=== PATIENT | male | born 1995 | race Two or more races ===

== ENCOUNTER 2019-10-19 21:59 | Inpatient (IN) | payer OTHER ==
--- NOTE | 2019-10-19 22:42 | HP ---
COWS - Scale Resting Pulse: 0= [place] 80 or Below Sweatin= No chills or Flushing Restless Observation: 0= Sits Still Pupil Size: 0= Normal to Room Light Bone or Joint Aches: 0= None Runny Nose/ Eye Tearin= None GI Upset > 30mins: 3= Vomiting/Diarrhea Tremor Observation: 1= Tremor [place], Not Seen Yawning Observation: 1= 1-2x During Session Anxiety or Irritability: 2=Irritable/Anxious Goose Flesh Skin: 0=Smooth Skin COWS Score: 7 CIWA Score - Admission Criteria [facility] Guidelines: Admission for Medically Managed Detox: Requires at least one of the followin. CIWA greater than 12 2. Seizures within the past 24 hours 3. Delirium tremens within the past 24 hours 4. Hallucinations within the past 24 hours 5. Acute intervention needed for co occurring medical disorder 6. Acute intervention needed for co occurring psychiatric disorder 7. Severe withdrawal that cannot be handled at a lower level of care (continued vomiting, continued diarrhea, abnormal vital signs) requiring intravenous medication and/or fluids 8. Admission [facility] Chief Complaint: SEEKING DETOX FOR C/O HEROIN WITHDRAWAL SX'S Allergies/Adverse Reactions: Allergies Allergy/AdvReac Type Severity Reaction Status Date / Time Penicillins Allergy Intermediate Hives Verified 10/19/19 23:13 History of Present Illness: HERE FOR HEROIN DETOX. THIS IS CLIENT FIRST ADMISSION HERE. REFERRED BY FAMILY MEMEBER. THIS IS IS HIS FIRST TIME SEEKING INAPTIENT TXMENT FOR HIS HEROIN ABUSE. HE REPORTS DAILY US OF HEROIN. LAST USE A FEW HOURS AGO. PRESENTS NOW WITH C/O WITHDRAWAL ONSET. DENIES IVDU, DRUG OVERDOSE, SEIZURES, SI/HI, AVH. DENIES ANY CLEAN TIME. LIVES WITH FAMILY, UNEMPLOYED, DENIES LEGALS Exam Limitations: No Limitations - Ebola screening Have you traveled outside of the country in the last 21 days: No Have you had contact with anyone from an Ebola affected area: No Have you been sick,other than usual withdrawal symptoms: No Do you have a fever: No - Review of Systems Constitutional: Chills EENT: reports: No Symptoms Reported Respiratory: reports: No Symptoms reported Cardiac: reports: No Symptoms Reported GI: reports: Poor Appetite, Vomiting : reports: No Symptoms Reported Musculoskeletal: reports: Back Pain Integumentary: reports: Other (ABRASON TO HAND AND R KNEE) Neuro: reports: Tremors Endocrine: reports: No Symptoms Reported Hematology: reports: No Symptoms Reported Psychiatric: reports: Orientated x3, Agitated (IRRITABLE), Anxious, Depressed (DENIES SI) Other Systems: Reviewed and Negative Patient History - Patient Medical History Hx Anemia: No Hx Asthma: No Hx Chronic Obstructive Pulmonary Disease (COPD): No Hx Cancer: No Hx Cardiac Disorders: No Hx Congestive Heart Failure: No Hx Hypertension: No Hx Hypercholesterolemia: No Hx Pacemaker: No HX Cerebrovascular Accident: No Hx Seizures: No Hx Dementia: No Hx Diabetes: No Hx Gastrointestinal Disorders: No Hx Liver Disease: No Hx Genitourinary Disorders: No Hx Sexually Transmitted Disorders: No Hx Renal Disease (ESRD): No Hx Thyroid Disease: No Hx Human Immunodeficiency Virus (HIV): No Hx Hepatitis C: No Hx Depression: Yes Hx Bipolar Disorder: Yes Hx Schizophrenia: Yes Other Medical History: ambilify 400 mg injection.last injection 09/19/2019 - Patient Surgical History Past Surgical History: No - PPD History Previous Implant?: Yes Documented Results: Negative w/o proof Implanted On Prior [facility] Admission?: No PPD to be Administered?: Yes - Smoking Cessation Smoking history: Current every day smoker Have you smoked in the past 12 months: Yes Aproximately how many cigarettes per day: 3 Cigars Per Day: 0 Hx Chewing Tobacco Use: No Initiated information on smoking cessation: Yes 'Breaking Loose' booklet given: 10/19/19 - Substance & Tx. History Hx Alcohol Use: No Hx Substance Use: Yes Substance Use Type: Heroin Hx Substance Use Treatment: No - Substances abused Heroin Substance route: Inhalation Frequency: Daily Amount used: 3 BAGS Age of first use: 23 Date of last use: 10/19/19 Cocaine Substance route: Inhalation Frequency: 1-2 times per week Amount used: 10 DOLLARS Age of first use: 22 Date of last use: 10/16/19 Marijuana/Hashish Substance route: Smoking Frequency: 1-2 times per week Amount used: 1 JOINT Age of first use: 14 Date of last use: 10/11/19 Admission Physical Exam BHS - Physical General Appearance: Yes: Irritable, Anxious HEENTM: Yes: EOMI, Normocephalic, Normal Voice, DALIA, Pharynx Normal Respiratory: Yes: Chest Non-Tender, Lungs Clear, Normal Breath Sounds, No Respiratory Distress, No Accessory Muscle Use Neck: Yes: No masses,lesions,Nodules, Supple, Trachea in good position Breast: Yes: Breasts Symetrical Cardiology: Yes: Regular Rhythm, Regular Rate, S1, S2 Abdominal: Yes: Normal Bowel Sounds, Non Tender, Soft Genitourinary: Yes: Within Normal Limits Back: Yes: Normal Inspection Musculoskeletal: Yes: full range of Motion, Gait Steady Extremities: Yes: Normal Range of Motion, Non-Tender Neurological: Yes: Fully Oriented, Alert, Motor Strength 5/5, Depressed Affect Integumentary: Yes: Cold, Clam[place] Lymphatic: Yes: Within Normal Limits - Diagnostic (1) Opioid dependence with withdrawal Current Visit: Yes Status: Acute (2) Nicotine dependence Current Visit: Yes Status: Chronic Qualifiers: Nicotine product type: cigarettes Substance use status: uncomplicated Qualified Code(s): F17.210 - Nicotine dependence, cigarettes, uncomplicated (3) Cocaine abuse Current Visit: Yes Status: Acute (4) Marijuana abuse Current Visit: Yes Status: Acute (5) Psychiatric disorder Current Visit: Yes Status: Chronic (6) Slovenian speaking patient Current Visit: Yes Status: Chronic Cleared for Admission [facility] - Detox or Rehab [facility] Level of Care: Medically Managed Detox Regimen/Protocol: Methadone Claeared for Rehab Admission: No Inpatient Rehab Admission - Rehab Decision to Admit Inpatient rehab admission?: No
[2019-10-19 23:06] VITALS: BMI 22.6
[2019-10-19] MEDS ORDERED: ACETAMINOPHEN 325 MG TABLET (FP) PO PRN ×2 (23:19)
[2019-10-19] MEDS ORDERED: METHADONE HCL 10 MG TABLET (FOR DETOX USE ONLY) PO ONE (23:19)
[2019-10-19] MEDS ORDERED: MENTHOL/PHENOL 1 EACH UD MM PRN (23:19)
[2019-10-19] MEDS ORDERED: MAG HYDROX/AL HYDROX/SIMETH 30 ML UNIT-DOSE CUP PO PRN (23:19)
[2019-10-19] MEDS ORDERED: MAGNESIUM HYDROX 2400MG/30ML ORAL SUSPENSION 30 ML CUP PO PRN (23:19)
[2019-10-19] MEDS ORDERED: MAGNESIUM CITRATE 300 ML BOTTLE PO PRN (23:19)
[2019-10-19] MEDS ORDERED: cloNIDine HCL 0.1 MG TABLET PO PRN (23:19)
[2019-10-19] MEDS ORDERED: BISMUTH SUBSALICYLATE 524 MG/30 ML UD PO PRN (23:19)
[2019-10-19] MEDS ORDERED: guaiFENesin 200 MG/10 ML 10 ML UNIT-DOSE CUPS PO PRN (23:19)
[2019-10-19] MEDS ORDERED: P-EPHED 60MG/TRIPROLIDI 2.5MG TABLET PO PRN (23:19)
[2019-10-19] MEDS ORDERED: IBUPROFEN 400 MG TABLET (FP) PO PRN (23:19)
[2019-10-19] MEDS ORDERED: NALOXONE HCL 0.4 MG/ML VIAL IM PRN (23:19)
[2019-10-19] MEDS ORDERED: DICYCLOMINE HCL 10 MG CAPSULE PO PRN (23:19)
[2019-10-19] MEDS ORDERED: ONDANSETRON *ODT* 4 MG TABLET SL ONE (23:45)
[2019-10-20] MEDS ORDERED: cloNIDine HCL 0.1 MG TABLET PO PRN (07:05)
[2019-10-20] MEDS ORDERED: METHADONE (DETOX) 20 MG, METHADONE (DETOX) 5 MG PO ONE (10:00)
[2019-10-20] MEDS ORDERED: METHADONE HCL 10 MG TABLET (FOR DETOX USE ONLY) PO ONE (10:00)
[2019-10-20 10:10] LABS: HEMATOCRIT 46.5 % (35.4-49); HEMOGLOBIN 15.8 GM/dL (11.7-16.9); MCH 29.6 pg (25.7-33.7); MEAN CELL VOLUME 87.1 fl (80-96); MEAN PLT VOLUME 8.7 fl (7.5-11.1); PLATELET COUNT 334 K/MM3 (134-434); RBC 5.34 M/mm3 (4.00-5.60); RDW 13.3 % (11.9-15.9); WHITE BLOOD COUNT 7.4 K/mm3 (4.0-10.0)
[2019-10-20 10:30] LABS: ALBUMIN 3.7 g/dl (3.4-5.0); BLOOD UREA NITROGEN 10.7 mg/dL (7-18); POTASSIUM 4.5 mmol/L (3.5-5.1)
[2019-10-20 10:35] LABS: BILIRUBIN,TOTAL 0.4 mg/dL (0.2-1); CREATININE 0.8 mg/dL (0.55-1.3); TOT PROT 6.9 g/dl (6.4-8.2)
[2019-10-20] MEDS: PRENATAL VITAMINS W/ FOLIC ACID TABLET (FP) PO SCH (10:40)
[2019-10-20] MEDS: NICOTINE 14 MG/24 HOURS TOPICAL PATCH TD SCH (10:40)
--- NOTE | 2019-10-20 10:52 | CONSULT ---
[facility] Psychiatric Consult - Data Date of interview: 10/20/19 Admission source: [facility] Identifying data: First visit to [facility] and admission to [address] [place] [address] for this 24 y/o Gabonese male from [place] descent, self-referred for detoxification treatment. DAYANA issues : heroin, cocaine, marihuana, nicotine. Patient is single, no dependets, domiciled (lives with biological mother), unemployed and supported on SSI benefits. Substance Abuse History: Discussed with the patient. DAYANA profile as follows : Smoking history: Current every day smoker. Have you smoked in the past 12 months: Yes. Aproximately how many cigarettes per day: 3. Cigars Per Day: 0. Hx Chewing Tobacco Use: No. Initiated information on smoking cessation: Yes. 'Breaking Loose' booklet given: 10/19/19. - Substance & Tx. History. Hx Alcohol Use: No. Hx Substance Use: Yes. Substance Use Type: Heroin. Hx Substance Use Treatment: No. - Substances abused. Heroin. Substance route: Inhalation. Frequency: Daily. Amount used: 3 BAGS. Age of first use: 23. Date of last use: 10/19/19. Cocaine. Substance route: Inhalation. Frequency: 1-2 times per week. Amount used: 10 DOLLARS. Age of first use: 22. Date of last use: 10/16/19. Marijuana/Hashish. Substance route: Smoking. Frequency: 1-2 times per week. Amount used: 1 JOINT. Age of first use: 14. Date of last use: 10/11/19 Medical History: Patient endorses good general health. Psychiatric History: Patient admits to history of two psychiatric hospitalizations (unable to recall names of institutions). Mr Moore is a limited historian. He reports that he has been diagnosed with schizophrenia (versus bipolar disorder). Patient informs MD that he gets a " psychiatric medication " via monthly injection (last dispensed on 09/19/19). As per data from [facility], the medication has been identified as abilify Maintena (strength = 400 mg). Patient states that he sees a psychiatrist, Dr Barraza, at a [facility] program in [facility] (name not recalled). Denies history of suicide attempts. Physical/Sexual Abuse/Trauma History: Patient denies history of abuse. Additional Comment: Toxicology not available for review. Mental Status Exam - Mental Status Exam Alert and Oriented to: Time, Place, Person Cognitive Function: Good Patient Appearance: Well Groomed (short stature, tattoos on left upper extremity) Mood: Nervous, Withdrawn Affect: Blunted Patient Behavior: Fatigued, Talkative (in uruguayan), Cooperative Speech Pattern: Clear (in uruguayan; coherent and goal-directed), Appropriate Voice Loudness: Normal Thought Process: Goal Oriented Thought Disorder: Not Present Hallucinations: Denies Suicidal Ideation: Denies Homicidal Ideation: Denies Insight/Judgement: Poor Sleep: Fair Appetite: Good Gait/Station: Normal Psychiatric Findings - Problem List ([place] 1, 2,3) (1) Opioid dependence with withdrawal Status: Chronic Comment: . (2) Cocaine abuse Status: Chronic Comment: . (3) Marijuana abuse Status: Chronic Comment: . (4) Nicotine dependence Status: Deleted Comment: . (5) Schizophrenia Status: Chronic Comment: .As per self-report. On monthly injection of abilify Maintena 400 mg IM. Last dispensed on 09/19/19. - Initial Treatment Plan Initial Treatment Plan: Psychoeducation. Sleep hygiene. Detoxification in progress. Support. Real Estate Accountant contacted pharmacist at [facility] ([phone]) : confimed script for Abilify Maintena 400 mg IM X one dose (picked up on 09/16/19 + dispensed on 09/19/19) from Dr Chilo Barraza ([phone]) at the [facility]; this medication has also been prescribed by another physician, Dr Meredith Dowd ([phone]). Observation.
[2019-10-20] MEDS: NICOTINE POLACRILEX 2 MG GUM BUC PRN ×2 (13:30→17:15)
--- NOTE | 2019-10-20 13:41 | PN ---
BHS COWS - Scale Resting Pulse: 0= [place] 80 or Below Sweatin= Chills/Flushing Restless Observation: 0= Sits Still Pupil Size: 0= Normal to Room Light Bone or Joint Aches: 2= Severe Diffuse Aches Runny Nose/ Eye Tearin= None GI Upset > 30mins: 0= None Tremor Observation of Outstretched Hands: 2= Slight Tremor Visible Yawning Observation: 0= None Anxiety or Irritability: 2=Irritable/Anxious Goose Flesh Skin: 0=Smooth Skin COWS Score: 7 BHS Progress Note (SOAP) Subjective: Complaints of anxiety, chills, tremors and body aches. Objective: 10/20/19 13:40 Vital Signs 10/20/19 09:39 Temperature 97.8 F Pulse Rate 64 Respiratory 18 Rate Blood Pressure 146/74 O2 Sat by Pulse 100 Oximetry (%) Laboratory Last Values WBC 7.4 K/mm3 (4.0-10.0) 10/20/19 07:25 RBC 5.34 M/mm3 (4.00-5.60) 10/20/19 07:25 Hgb 15.8 GM/dL (11.7-16.9) 10/20/19 07:25 Hct 46.5 % (35.4-49) 10/20/19 07:25 MCV 87.1 fl (80-96) 10/20/19 07:25 MCH 29.6 pg (25.7-33.7) 10/20/19 07:25 MCHC 34.0 g/dl (32.0-35.9) 10/20/19 07:25 RDW 13.3 % (11.9-15.9) 10/20/19 07:25 Plt Count 334 K/MM3 (134-434) 10/20/19 07:25 MPV 8.7 fl (7.5-11.1) 10/20/19 07:25 Sodium 140 mmol/L (136-145) 10/20/19 07:25 Potassium 4.5 mmol/L (3.5-5.1) 10/20/19 07:25 Chloride 108 mmol/L (98-107) H 10/20/19 07:25 Carbon Dioxide 27 mmol/L (21-32) 10/20/19 07:25 Anion Gap 6 MMOL/L (8-16) L 10/20/19 07:25 BUN 10.7 mg/dL (7-18) 10/20/19 07:25 Creatinine 0.8 mg/dL (0.55-1.3) 10/20/19 07:25 Est GFR (CKD-EPI)AfAm 145.93 10/20/19 07:25 Est GFR (CKD-EPI)NonAf 125.91 10/20/19 07:25 Random Glucose 87 mg/dL (74-106) 10/20/19 07:25 Calcium 9.0 mg/dL (8.5-10.1) 10/20/19 07:25 Total Bilirubin 0.4 mg/dL (0.2-1) 10/20/19 07:25 AST 14 U/L (15-37) L 10/20/19 07:25 ALT 21 U/L (13-61) 10/20/19 07:25 Alkaline Phosphatase 71 U/L (45-117) 10/20/19 07:25 Total Protein 6.9 g/dl (6.4-8.2) 10/20/19 07:25 Albumin 3.7 g/dl (3.4-5.0) 10/20/19 07:25 Syphilis Serology Non-reactive (NONREACTIVE) 10/20/19 07:25 Labs noted. Assessment: 10/20/19 13:40 Alert and oriented x 3, in no acute respiratory distress. Full ROM, ambulating in unit without assistance. Skin warm to touch without any lesions. Withdrawal symptoms. Plan: Continue detox protocol.
--- NOTE | 2019-10-20 15:00 | EKG ---
Test Reason : Blood Pressure : / mmHG Vent. Rate : 061 BPM Atrial Rate : 061 BPM P-R Int : 144 ms QRS Dur : 112 ms QT Int : 448 ms P-R-T Axes : 040 060 051 degrees QTc Int : 450 ms NORMAL SINUS RHYTHM MINIMAL VOLTAGE CRITERIA FOR LVH, MAY BE NORMAL VARIANT BORDERLINE ECG NO PREVIOUS ECGS AVAILABLE Confirmed by Bairon Gonzalez ([id number]) on 10/20/2019 2:59:57 PM Referred By: Srikanth Thomas Confirmed By:Bairon Gonzalez
[2019-10-20] MEDS: METHOCARBAMOL 500 MG TABLET PO PRN (22:50)
[2019-10-20] MEDS: hydrOXYzine PAMOATE 25 MG CAPSULE (FP) PO PRN (22:50)
[2019-10-20] MEDS: THIAMINE HCL 100 MG TABLET (FP) PO SCH (22:50)
[2019-10-20] MEDS: MELATONIN 5 MG TABLETS PO SCH (22:51)
[2019-10-21] MEDS: NICOTINE POLACRILEX 2 MG GUM BUC PRN (07:44)
[2019-10-21] MEDS ORDERED: METHADONE HCL 5 MG TABLET (FOR DETOX USE ONLY) ONE (09:08)
[2019-10-21] MEDS ORDERED: METHADONE HCL 10 MG TABLET (FOR DETOX USE ONLY) ONE (09:09)
[2019-10-21] MEDS ORDERED: METHADONE HCL 10 MG TABLET (FOR DETOX USE ONLY) PO ONE (10:00)
[2019-10-21] MEDS ORDERED: METHADONE (DETOX) 20 MG, METHADONE (DETOX) 5 MG PO ONE (10:00)
[2019-10-21] MEDS: NICOTINE 14 MG/24 HOURS TOPICAL PATCH TD SCH (12:15)
[2019-10-21] MEDS: PRENATAL VITAMINS W/ FOLIC ACID TABLET (FP) PO SCH (12:16)
--- NOTE | 2019-10-21 12:38 | PN ---
BHS COWS - Scale Resting Pulse: 0= [place] 80 or Below Sweatin= Chills/Flushing Restless Observation: 1= Difficult to Sit Still Pupil Size: 0= Normal to Room Light Bone or Joint Aches: 2= Severe Diffuse Aches Runny Nose/ Eye Tearin= None GI Upset > 30mins: 0= None Tremor Observation of Outstretched Hands: 1= Tremor [place], Not Seen Yawning Observation: 0= None Anxiety or Irritability: 2=Irritable/Anxious Goose Flesh Skin: 0=Smooth Skin COWS Score: 7 BHS Progress Note (SOAP) Subjective: C/O anxiety, chills, tremors and joint aches. Objective: 10/21/19 12:37 Vital Signs 10/21/19 10/21/19 05:59 09:11 Temperature 96.8 F L 97.8 F Pulse Rate 52 L 63 Respiratory 16 18 Rate Blood Pressure 113/65 127/67 O2 Sat by Pulse 100 99 Oximetry (%) Laboratory Last Values WBC 7.4 K/mm3 (4.0-10.0) 10/20/19 07:25 RBC 5.34 M/mm3 (4.00-5.60) 10/20/19 07:25 Hgb 15.8 GM/dL (11.7-16.9) 10/20/19 07:25 Hct 46.5 % (35.4-49) 10/20/19 07:25 MCV 87.1 fl (80-96) 10/20/19 07:25 MCH 29.6 pg (25.7-33.7) 10/20/19 07:25 MCHC 34.0 g/dl (32.0-35.9) 10/20/19 07:25 RDW 13.3 % (11.9-15.9) 10/20/19 07:25 Plt Count 334 K/MM3 (134-434) 10/20/19 07:25 MPV 8.7 fl (7.5-11.1) 10/20/19 07:25 Sodium 140 mmol/L (136-145) 10/20/19 07:25 Potassium 4.5 mmol/L (3.5-5.1) 10/20/19 07:25 Chloride 108 mmol/L (98-107) H 10/20/19 07:25 Carbon Dioxide 27 mmol/L (21-32) 10/20/19 07:25 Anion Gap 6 MMOL/L (8-16) L 10/20/19 07:25 BUN 10.7 mg/dL (7-18) 10/20/19 07:25 Creatinine 0.8 mg/dL (0.55-1.3) 10/20/19 07:25 Est GFR (CKD-EPI)AfAm 145.93 10/20/19 07:25 Est GFR (CKD-EPI)NonAf 125.91 10/20/19 07:25 Random Glucose 87 mg/dL (74-106) 10/20/19 07:25 Calcium 9.0 mg/dL (8.5-10.1) 10/20/19 07:25 Total Bilirubin 0.4 mg/dL (0.2-1) 10/20/19 07:25 AST 14 U/L (15-37) L 10/20/19 07:25 ALT 21 U/L (13-61) 10/20/19 07:25 Alkaline Phosphatase 71 U/L (45-117) 10/20/19 07:25 Total Protein 6.9 g/dl (6.4-8.2) 10/20/19 07:25 Albumin 3.7 g/dl (3.4-5.0) 10/20/19 07:25 Syphilis Serology Non-reactive (NONREACTIVE) 10/20/19 07:25 COVID-19 (RUSSELL) Not detected (Not Detected) 10/20/19 00:05 labs noted. Assessment: 10/21/19 12:38 Alert and oriented x 3, in no acute respiratory distress. Full ROM, ambulatory in unit without any assistance. Skin warm to touch without any lesions. Withdrawal symptoms. Plan: Continue detox protocol.
[2019-10-21] MEDS: MELATONIN 5 MG TABLETS PO SCH (23:40)
[2019-10-21] MEDS: THIAMINE HCL 100 MG TABLET (FP) PO SCH (23:40)
[2019-10-22] MEDS: hydrOXYzine PAMOATE 25 MG CAPSULE (FP) PO PRN ×2 (05:44→21:05)
--- NOTE | 2019-10-22 09:53 | PN ---
BHS COWS - Scale Resting Pulse: 0= ID 80 or Below Sweatin= No chills or Flushing Restless Observation: 1= Difficult to Sit Still Pupil Size: 0= Normal to Room Light Bone or Joint Aches: 2= Severe Diffuse Aches Runny Nose/ Eye Tearin= None GI Upset > 30mins: 0= None Tremor Observation of Outstretched Hands: 0= None Yawning Observation: 1= 1-2x During Session Anxiety or Irritability: 2=Irritable/Anxious Goose Flesh Skin: 0=Smooth Skin COWS Score: 6 BHS Progress Note (SOAP) Subjective: c/o anxiety, muscle aches, and irritability. Objective: 10/22/19 09:52 Vital Signs 10/22/19 10/22/19 05:48 08:17 Temperature 97.7 F 98.1 F Pulse Rate 61 69 Respiratory 18 16 Rate Blood Pressure 124/60 125/73 O2 Sat by Pulse 99 Oximetry (%) Laboratory Last Values WBC 7.4 K/mm3 (4.0-10.0) 10/20/19 07:25 RBC 5.34 M/mm3 (4.00-5.60) 10/20/19 07:25 Hgb 15.8 GM/dL (11.7-16.9) 10/20/19 07:25 Hct 46.5 % (35.4-49) 10/20/19 07:25 MCV 87.1 fl (80-96) 10/20/19 07:25 MCH 29.6 pg (25.7-33.7) 10/20/19 07:25 MCHC 34.0 g/dl (32.0-35.9) 10/20/19 07:25 RDW 13.3 % (11.9-15.9) 10/20/19 07:25 Plt Count 334 K/MM3 (134-434) 10/20/19 07:25 MPV 8.7 fl (7.5-11.1) 10/20/19 07:25 Sodium 140 mmol/L (136-145) 10/20/19 07:25 Potassium 4.5 mmol/L (3.5-5.1) 10/20/19 07:25 Chloride 108 mmol/L (98-107) H 10/20/19 07:25 Carbon Dioxide 27 mmol/L (21-32) 10/20/19 07:25 Anion Gap 6 MMOL/L (8-16) L 10/20/19 07:25 BUN 10.7 mg/dL (7-18) 10/20/19 07:25 Creatinine 0.8 mg/dL (0.55-1.3) 10/20/19 07:25 Est GFR (CKD-EPI)AfAm 145.93 10/20/19 07:25 Est GFR (CKD-EPI)NonAf 125.91 10/20/19 07:25 Random Glucose 87 mg/dL (74-106) 10/20/19 07:25 Calcium 9.0 mg/dL (8.5-10.1) 10/20/19 07:25 Total Bilirubin 0.4 mg/dL (0.2-1) 10/20/19 07:25 AST 14 U/L (15-37) L 10/20/19 07:25 ALT 21 U/L (13-61) 10/20/19 07:25 Alkaline Phosphatase 71 U/L (45-117) 10/20/19 07:25 Total Protein 6.9 g/dl (6.4-8.2) 10/20/19 07:25 Albumin 3.7 g/dl (3.4-5.0) 10/20/19 07:25 Syphilis Serology Non-reactive (NONREACTIVE) 10/20/19 07:25 COVID-19 (RUSSELL) Not detected (Not Detected) 10/20/19 00:05 Labs noted. Assessment: 10/22/19 09:52 AOX3, in no acute respiratory distress. Full ROM, ambulating in the unit. Withdrawal symptoms. Plan: continue detox. Increase fluids.
[2019-10-22] MEDS ORDERED: METHADONE HCL 10 MG TABLET (FOR DETOX USE ONLY) PO ONE (10:00)
[2019-10-22] MEDS: PRENATAL VITAMINS W/ FOLIC ACID TABLET (FP) PO SCH (10:00)
[2019-10-22] MEDS ORDERED: METHADONE (DETOX) 10 MG, METHADONE (DETOX) 5 MG PO ONE (10:00)
[2019-10-22] MEDS: NICOTINE 14 MG/24 HOURS TOPICAL PATCH TD SCH (10:01)
[2019-10-22] MEDS: NICOTINE POLACRILEX 2 MG GUM BUC PRN ×3 (10:04→15:50)
--- NOTE | 2019-10-22 11:32 | PN ---
Psychiatric Progress Note Vital Signs: Vital Signs Period Temp Pulse Resp BP Sys/Jacobs Pulse Ox Last 24 Hr 97.3 F-98.1 F 60-78 16-19 124-148/60-85 97-99 Date of Session: 10/22/19 Chief Complaint:: " I am feeling well. So much better." HPI: Follow-up visit for exploration of longitudinal history + re-assessment of mental status + discussion of medications (Marcel Claire). Patient is going through a normal course of detoxification. He offers no complaints. Meeting with the patient is for psychoeducation, motivational counseling and discussion of aftercare plans. ROS: Unremarkable. Patient is ambulatory, well groomed, alert and fully oriented. Steady gait. Cognition is intact. No somatic complaints. Current Medications: Active Medications Generic Name Dose Route Start Last Admin Trade Name Freq PRN Reason Stop Dose Admin Acetaminophen 650 mg 10/19/19 23:19 Tylenol - PO Q6H PRN PAIN LEVEL 4 - 6 Acetaminophen 650 mg 10/19/19 23:19 Tylenol - PO Q6H PRN FEVER Al Hydroxide/Mg Hydroxide 30 ml 10/19/19 23:19 Mylanta Oral Suspension - PO Q6H PRN DYSPEPSIA Bismuth Subsalicylate 524 mg 10/19/19 23:19 Pepto-Bismol - PO Q1H PRN DIARRHEA Clonidine 0.1 mg 10/20/19 07:05 10/22/19 10:00 Catapres - PO 10/22/19 23:59 0.1 mg Q4H PRN Administration Withdrawal Symptoms Dicyclomine HCl 10 mg 10/19/19 23:19 Bentyl - PO 10/25/19 23:23 Q6H PRN Abdominal Cramping Eucalyptus/Menthol/Phenol/Sorbitol 1 each 10/19/19 23:19 Cepastat Lozenge - MM 10/25/19 23:19 Q4H PRN SORE THROAT Guaifenesin 10 ml 10/19/19 23:19 Robitussin - PO Q6H PRN COUGH Hydroxyzine Pamoate 25 mg 10/19/19 23:19 10/22/19 05:44 Vistaril - PO 10/25/19 23:22 25 mg Q4HWA PRN Administration ANXIETY Ibuprofen 400 mg 10/19/19 23:19 Motrin - PO Q6H PRN PAIN LEVEL 1 - 3 Magnesium Citrate 300 ml 10/19/19 23:19 Citroma - PO Q48H PRN CONSTIPATION Magnesium Hydroxide 30 ml 10/19/19 23:19 Milk Of Magnesia - PO PRN PRN CONSTIPATION Melatonin 5 mg 10/20/19 22:00 10/21/19 23:40 Melatonin PO Not Given HS MATTY Methadone HCl 5 mg 10/25/19 06:00 Dolophine - PO 10/25/19 06:01 ONCE@0600 ONE Methadone HCl 10 mg 10/24/19 10:00 Dolophine - PO 10/24/19 10:01 ONCE ONE Methadone HCl 10 mg/ Methadone 15 mg 10/23/19 10:00 HCl 5 mg PO 10/23/19 10:01 ONCE ONE Methocarbamol 500 mg 10/19/19 23:19 10/20/19 22:50 Robaxin - PO 10/25/19 23:19 500 mg Q6H PRN Administration MUSCLE SPASMS Naloxone HCl 0.4 mg 10/19/19 23:19 Narcan - IM PRN PRN RESPIRATORY DEPRESSION Nicotine 14 mg 10/20/19 10:00 10/22/19 10:01 Nicoderm Patch - TD Not Given DAILY MATTY Nicotine Polacrilex 2 mg 10/19/19 23:19 10/22/19 10:04 Nicorette Gum - BUC 2 mg Q2H PRN Administration NICOTINE REPLACEMENT RX Multivit/Folic Acid/Iron 1 tab 10/20/19 10:00 10/22/19 10:00 Vitamins ([facility]) - PO 1 tab DAILY MATTY Administration Pseudoephedrine/Triprolidine 1 combo 10/19/19 23:19 Actifed - PO Q6H PRN NASAL CONGESTION Thiamine HCl 100 mg 10/20/19 22:00 10/21/19 23:40 Vitamin B1 - PO Not Given HS MATTY Medication(s) Change(s): Patient reports that he is due for his monthly IM injection of Abilify Maintena 400 mg (09/19/19). This has been confirmed by pharmacist from [facility] ([phone]). See my note of 09/20/19. Duct Cleaner attempted (unsuccessfully) to contact Dr Chilo Barraza at [phone]. Side effects/benefits of Abilify are discussed with the patient. Mr Moore is in agreement with this plan of care. Abilify Maintena 400 mg IM X one dose : ordered (with patient's verbal consent). Current Side Effect: No Lab tests ordered: No Lab tests reviewed: Yes Provider note:: Chart reviewed. Multidisciplinary progress notes are revisited. Patient is re-interviewed in the presence of detective sergeant Victor M Campbell (russian- fluent) who provided assistance as wildlife manager. Conversation done in russian. Mr Moore is found to be pleasant, friendly, well-tempered and cooperative with the examiners. He reports feeling considerably better. Patient is a good, clear and goal-directed historian : [place] to a [place] mother + [place] father; raised since in age 4-5, in the [place], [place] age 20; patient is currently living with his biological mother. Education level : grade 5. 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 Supports self with SSI benefits. Patient confirms a long standing history of mental illness : diagnosed with " schizophrenia and bipolar disorder ". Has no recall of names of psychiatric institutions but he indicates that he was at a hospital in [place] in 2018 or 2019 where he was evaluated by psychiatrists and prescribed medications " for voices ". Mr Moore endorses history of at least two suicide attempts via hanging (at age 17) + self mutilation (cutting) in 2017 prior to his arrival to the [facility]. He confirms his DAYANA issues (cannabis, cocaine, opioid, nicotine), verbalizes motivation " to stay away from drugs and stop drinking." Patient states that his immediate goal is to enter rehabilitation treatment once detoxification completed (counselor Reena confirms that referrals have been sent to [facility] rehabilitation program : response is pending). Patient feels satisfied with his current aftercare arrangements. Mental status is remarkable for euthymic mood, full range affect, appropriate behavior, good impulse control and judgment. Patient denies hallucinations in all sensory modalities. Denies suicidal or homicidal ideation, intent or plan. Thought processes are coherent, relevant and logical. No delusion elicited at time of this examination. Stable mental status (see MSE report for details). Benign hospital course. Baseline functioning. Abilify Maintena 400 mg IM X one dose will be dispensed with patient's consent (continuity of care). Total face to face time:: 60 Mental Status Exam - Mental Status Exam Alert and Oriented to: Time, Place, Person Cognitive Function: Good Patient Appearance: Well Groomed Mood: Hopeful, Euthymic Affect: Appropriate, Normal Range Patient Behavior: Appropriate, Cooperative Speech Pattern: Clear (patient is addressed in russian by the detective sergeant Victor M Campbell), Appropriate Voice Loudness: Normal Thought Process: Intact, Goal Oriented (interview conducted in russian) Thought Disorder: Not Present Hallucinations: Denies Suicidal Ideation: Denies Homicidal Ideation: Denies Insight/Judgement: Fair Sleep: Well Appetite: Good Gait/Station: Normal Psychiatric Treatment Plan - Problem List (1) Opioid dependence with withdrawal Current Visit: Yes Comment: . (2) Cocaine abuse Current Visit: Yes Comment: . (3) Marijuana abuse Current Visit: Yes Comment: . (4) Nicotine dependence Current Visit: Yes Comment: . (5) Schizophrenia Current Visit: Yes Comment: .As per self-report. On monthly injection of marcel Maintena 400 mg IM. Last dispensed on 09/19/19.
--- NOTE | 2019-10-22 12:03 | PN ---
[facility] Progress Note Note: Psychiatric nurse practitioner note: Patient seen with Dr. Mendoza. Case Conference held with patient. Patient is calm, cooperative, alert +oriented X3. Mr. Moore has a history of schizophrenia who is currently treated by Dr. Barraza at an OPD program in [place] and is prescribed Abilify maintena 400mg IM monthly. Patient reports satisfaction with current detox treatment and is agreeable in accepting abilify maintena 400mg IM while in detox . He last received the Abilify maintena Injection on September 19, 2019. Patient denies auditory/ visual hallucinations, suicidal/ homicidal ideations. No psychosis noted. Please review Dr. Mendoza note for additional information.
[2019-10-22] MEDS: MELATONIN 5 MG TABLETS PO SCH (21:06)
[2019-10-22] MEDS: THIAMINE HCL 100 MG TABLET (FP) PO SCH (21:06)
[2019-10-23] MEDS: hydrOXYzine PAMOATE 25 MG CAPSULE (FP) PO PRN ×2 (05:34→17:03)
[2019-10-23] MEDS: NICOTINE POLACRILEX 2 MG GUM BUC PRN ×4 (05:52→20:59)
[2019-10-23] MEDS ORDERED: METHADONE HCL 10 MG TABLET (FOR DETOX USE ONLY) ONE (08:56)
[2019-10-23] MEDS ORDERED: METHADONE HCL 5 MG TABLET (FOR DETOX USE ONLY) ONE (08:56)
[2019-10-23] MEDS ORDERED: METHADONE HCL 10 MG TABLET (FOR DETOX USE ONLY) PO ONE (10:00)
[2019-10-23] MEDS ORDERED: METHADONE (DETOX) 10 MG, METHADONE (DETOX) 5 MG PO ONE (10:00)
[2019-10-23] MEDS ORDERED: ARIPIPRAZOLE (ABILIFY MAINTENA) 400 MG DISPENSE SYRINGE IM ONE (10:00)
[2019-10-23] MEDS: NICOTINE 14 MG/24 HOURS TOPICAL PATCH TD SCH (10:09)
[2019-10-23] MEDS: PRENATAL VITAMINS W/ FOLIC ACID TABLET (FP) PO SCH (10:10)
--- NOTE | 2019-10-23 10:50 | PN ---
[facility] COWS - Scale Resting Pulse: 0= [place] 80 or Below Sweatin= Chills/Flushing Restless Observation: 1= Difficult to Sit Still Pupil Size: 0= Normal to Room Light Bone or Joint Aches: 1= Mild Discomfort Runny Nose/ Eye Tearin= None GI Upset > 30mins: 0= None Tremor Observation of Outstretched Hands: 1= Tremor Garden, Not Seen Yawning Observation: 0= None Anxiety or Irritability: 1=Feels Anxious/Irritable Goose Flesh Skin: 0=Smooth Skin COWS Score: 5 [facility] Progress Note (SOAP) Subjective: sweats agitation restless Objective: 10/23/19 10:49 Vital Signs Temperature 98.0 F 10/23/19 08:30 Pulse Rate 75 10/23/19 08:30 Respiratory Rate 18 10/23/19 08:30 Blood Pressure 141/78 10/23/19 08:30 O2 Sat by Pulse Oximetry (%) 98 10/23/19 06:58 Laboratory Tests 10/20/19 10/20/19 10/20/19 00:05 07:25 07:25 WBC 7.4 RBC 5.34 Hgb 15.8 Hct 46.5 MCV 87.1 MCH 29.6 MCHC 34.0 RDW 13.3 Plt Count 334 MPV 8.7 Sodium Potassium Chloride Carbon Dioxide Anion Gap BUN Creatinine Est GFR (CKD-EPI)AfAm Est GFR (CKD-EPI)NonAf Random Glucose Calcium Total Bilirubin AST ALT Alkaline Phosphatase Total Protein Albumin Syphilis Serology Non-reactive COVID-19 (RUSSELL) Not detected 10/20/19 07:25 WBC RBC Hgb Hct MCV MCH MCHC RDW Plt Count MPV Sodium 140 Potassium 4.5 Chloride 108 H Carbon Dioxide 27 Anion Gap 6 L BUN 10.7 Creatinine 0.8 Est GFR (CKD-EPI)AfAm 145.93 Est GFR (CKD-EPI)NonAf 125.91 Random Glucose 87 Calcium 9.0 Total Bilirubin 0.4 AST 14 L ALT 21 Alkaline Phosphatase 71 Total Protein 6.9 Albumin 3.7 Syphilis Serology COVID-19 (RUSSELL) labs noted aaox3 ambulating no acute distress Assessment: 10/23/19 10:49 withdrawals Plan: continue detox increase fluids
--- NOTE | 2019-10-23 17:44 | PN ---
[facility] Progress Note Note: Psychiatry Attending's note (follow-up) : Yard Jacker made several attempts to contact Dr Barraza. At the [facility]. At [phone]. Message left. Response pending. Yard Jacker has also used [phone] : no response. Providers are still not available for sharing collateral information. However, the patient is eager to receive his Abilify injection. Mr Moore has demonstrated his ability as a good, reliable historian. His claim of being on Maintena has been confirmed by pharmacist. Risks versus benefits have been revisited with the patient (in hebrew). Mr Moore exhibits some interest for rehabilitation (inpatient setting). Yard Jacker met with patient's counselor (patient in attendance). Case discussed. Plan : Injection for continuity of care (prevention of decompensation). Prior to discharge from [facility]. Pursue search for bed in a rehabilitation program. Detoxification in progress. Benign hospital course.
[2019-10-23] MEDS: METHOCARBAMOL 500 MG TABLET PO PRN (18:07)
[2019-10-23] MEDS: THIAMINE HCL 100 MG TABLET (FP) PO SCH (20:59)
[2019-10-23] MEDS: MELATONIN 5 MG TABLETS PO SCH (20:59)
[2019-10-24] MEDS: hydrOXYzine PAMOATE 25 MG CAPSULE (FP) PO PRN ×3 (05:24→20:29)
[2019-10-24] MEDS ORDERED: METHADONE HCL 5 MG TABLET (FOR DETOX USE ONLY) PO ONE (06:00)
[2019-10-24] MEDS: NICOTINE POLACRILEX 2 MG GUM BUC PRN ×3 (09:39→21:26)
[2019-10-24] MEDS: NICOTINE 14 MG/24 HOURS TOPICAL PATCH TD SCH (09:39)
[2019-10-24] MEDS: PRENATAL VITAMINS W/ FOLIC ACID TABLET (FP) PO SCH (09:39)
[2019-10-24] MEDS ORDERED: METHADONE HCL 10 MG TABLET (FOR DETOX USE ONLY) PO ONE (10:00)
--- NOTE | 2019-10-24 14:18 | PN ---
[facility] COWS - Scale Resting Pulse: 0= [place] 80 or Below Sweatin= No chills or Flushing Restless Observation: 1= Difficult to Sit Still Pupil Size: 0= Normal to Room Light Bone or Joint Aches: 1= Mild Discomfort Runny Nose/ Eye Tearin= None GI Upset > 30mins: 0= None Tremor Observation of Outstretched Hands: 0= None Yawning Observation: 0= None Anxiety or Irritability: 0= None Goose Flesh Skin: 0=Smooth Skin COWS Score: 2 S Progress Note (SOAP) Subjective: restless anxiety Objective: 10/24/19 14:19 Vital Signs Temperature 98.1 F 10/24/19 12:49 Pulse Rate 78 10/24/19 12:49 Respiratory Rate 18 10/24/19 12:49 Blood Pressure 126/65 10/24/19 12:49 O2 Sat by Pulse Oximetry (%) 99 10/24/19 12:49 aaox3 ambulating no acute distress Assessment: 10/24/19 14:19 withdrawals Plan: continue detox d/c in am
[2019-10-24] MEDS: METHOCARBAMOL 500 MG TABLET PO PRN (17:41)
[2019-10-24] MEDS: MELATONIN 5 MG TABLETS PO SCH (21:03)
[2019-10-24] MEDS: THIAMINE HCL 100 MG TABLET (FP) PO SCH (21:03)
[2019-10-25] MEDS ORDERED: METHADONE HCL 5 MG TABLET (FOR DETOX USE ONLY) PO ONE (06:00)
[2019-10-25 07:24] VITALS: TEMP 97.5
--- NOTE | 2019-10-25 08:54 | DS ---
[facility] Detox Discharge Summary Admission Date: 10/19/19 Discharge Date: 10/25/19 - History Present History: Cannabis Dependence, Cocaine Dependence, Opioid Dependence - Physical Exam Results Vital Signs: Vital Signs Temperature 97.5 F L 10/25/19 06:35 Pulse Rate 55 L 10/25/19 06:35 Respiratory Rate 10/25/19 06:35 Blood Pressure 129/80 10/25/19 06:35 O2 Sat by Pulse Oximetry (%) 96 10/25/19 06:35 Pertinent Admission Physical Exam Findings: Vital Signs Temperature 97.5 F L 10/25/19 06:35 Pulse Rate 55 L 10/25/19 06:35 Respiratory Rate 10/25/19 06:35 Blood Pressure 129/80 10/25/19 06:35 O2 Sat by Pulse Oximetry (%) 96 10/25/19 06:35 Laboratory Tests 10/20/19 10/20/19 10/20/19 00:05 07:25 07:25 WBC 7.4 RBC 5.34 Hgb 15.8 Hct 46.5 MCV 87.1 MCH 29.6 MCHC 34.0 RDW 13.3 Plt Count 334 MPV 8.7 Sodium Potassium Chloride Carbon Dioxide Anion Gap BUN Creatinine Est GFR (CKD-EPI)AfAm Est GFR (CKD-EPI)NonAf Random Glucose Calcium Total Bilirubin AST ALT Alkaline Phosphatase Total Protein Albumin Syphilis Serology Non-reactive COVID-19 (RUSSELL) Not detected 10/20/19 07:25 WBC RBC Hgb Hct MCV MCH MCHC RDW Plt Count MPV Sodium 140 Potassium 4.5 Chloride 108 H Carbon Dioxide 27 Anion Gap 6 L BUN 10.7 Creatinine 0.8 Est GFR (CKD-EPI)AfAm 145.93 Est GFR (CKD-EPI)NonAf 125.91 Random Glucose 87 Calcium 9.0 Total Bilirubin 0.4 AST 14 L ALT 21 Alkaline Phosphatase 71 Total Protein 6.9 Albumin 3.7 Syphilis Serology COVID-19 (RUSSELL) labs noted aaox3 ambulating no acute distress lungs CTA - Treatment Hospital Course: Detox Protocol Followed, Detoxed Safely, Responded well, Discharged Condition Good, Rehab Referral Accepted - Medication Discharge Medications: Ambulatory Orders Aripiprazole [Abilify Maintena] 400 mg IM MONTHLY 10/19/19 - Diagnosis (1) Opioid dependence with withdrawal Current Visit: Yes Status: Chronic (2) Cocaine abuse Current Visit: Yes Status: Chronic (3) Marijuana abuse Current Visit: Yes Status: Chronic (4) Nicotine dependence Current Visit: Yes Status: Chronic Qualifiers: Nicotine product type: cigarettes Substance use status: uncomplicated Qualified Code(s): F17.210 - Nicotine dependence, cigarettes, uncomplicated (5) Psychiatric disorder Current Visit: Yes Status: Chronic (6) Schizophrenia Current Visit: Yes Status: Chronic (7) [place] speaking patient Current Visit: Yes Status: Chronic - AMA Did Patient Leave Against Medical Advice: No
[2019-10-25 10:48] VITALS: BP 118/59; PULSE 62
--- NOTE | 2019-10-26 18:29 | PN ---
[facility] Progress Note Note: Psychiatry Attending's note (follow-up) : Spoke today with Mr Kaylin Ortega. He is the patient's nurse case management from [facility]. Psychiatrist, Dr Chilo Barraza will not be available for two more weeks. Case discussed with Mr Ortega. Made aware that patient received his injection of Maintena (400 mg/IM) on 10/23/19.
== END 2019-10-25 13:47 | disposition home or self-care (01) | DRG 773 ==
LOC: YASAS 21:59 → Y6N 22:27
PROVIDERS: ADMIT Allergy & Immunology; ATTEND Allergy & Immunology
PROC: HZ2ZZZZ Detoxification Services for Substance Abuse Treatment (ICD-10-PCS; principal; 2019-10-19)
DX: F11.23 Opioid dependence with withdrawal (principal); F14.10 Cocaine abuse, uncomplicated; F12.10 Cannabis abuse, uncomplicated; F17.210 Nicotine dependence, cigarettes, uncomplicated; F20.9 Schizophrenia, unspecified; F31.9 Bipolar disorder, unspecified; Z56.0 Unemployment, unspecified
CPT/HCPCS: 36415; 80053; 85027; 86780; 93005; 93010; J0735; U0003